=== PATIENT | female | born 1975 | race Caucasian/White ===

== ENCOUNTER 2023-06-24 16:20 | Emergency (ER) | payer MEDICARE, MEDICAID, SELFPAY ==
--- NOTE | 2023-06-24 16:22 | ECG_ITS ---
Test Reason : cx pain Blood Pressure : / mmHG Vent. Rate : 085 BPM Atrial Rate : 085 BPM P-R Int : 130 ms QRS Dur : 092 ms QT Int : 380 ms P-R-T Axes : 036 -36 032 degrees QTc Int : 452 ms Normal sinus rhythm Left axis deviation Nonspecific ST abnormality Abnormal ECG No previous ECGs available Referred By: Generic ED Physician Electronically Signed By:NOAM KERR MD
[2023-06-24 16:40] LABS: MANUAL DIFF FLAG NO
[2023-06-24 16:54] LABS: Anion Gap 13 (12-20); Blood Urea Nitrogen 14 mg/dL (9-16); Calcium 9.2 mg/dL (8.4-10.2); Carbon Dioxide 26 mmol/L (22-29); Chloride 105 mmol/L (96-108); Estimated Glomerular Filt Rate > 60; Glucose Random 128 mg/dL (60-115); Potassium 3.9 mmol/L (3.3-5.1); Sodium 140 mmol/L (135-145)
[2023-06-24 16:58] LABS: Basophils Percent Auto 0.4 % (0-2); Eosinophils Percent Auto 0.1 % (0-4); Hematocrit 38.7 % (37.0-47.0); Hemoglobin 13.4 g/dl (12.0-16.0); Imm Gran Abs Auto 0.02 X10*3/uL (0.00-0.03); Imm Gran Pct Auto 0.2 % (0.0-0.4); Lymphocytes Absolute Auto 2.6 X10*3/uL (1.2-4.9); Lymphocytes Percent Auto 27.8 % (20-40); Mean Corpuscular HGB Conc 34.6 g/dl (31.0-35.0); Mean Corpuscular Hemoglobin 33.7 pg (27.0-33.0); Mean Corpuscular Volume 97.2 fL (80.0-98.0); Mean Platelet Volume 9.8 fL (9.4-12.3); Monocytes Absolute Auto 0.4 X10*3/uL (0.1-1.2); Monocytes Percent Auto 4.7 % (2-11); Neutrophils Absolute Auto 6.3 x10*3/uL (2.0-8.3); Neutrophils Percent Auto 66.8 % (45-73); Platelet Count 262 X10*3/uL (160-400); Red Blood Count 3.98 X10*6/uL (4.20-5.50); Red Cell Distribution Width 11.4 % (11.0-16.0); White Blood Count 9.5 X10*3/uL (4.8-10.8)
[2023-06-24 17:08] LABS: Troponin-I High Sensitivity < 2.7 ng/L (<3.5-17.0)
== END 2023-06-24 18:06 | disposition left against medical advice (07) ==
PROVIDERS: Emergency Provider Emergency Medicine
DX: R07.89 Other chest pain (principal); Z79.899 Other long term (current) drug therapy
CPT/HCPCS: 36415; 80048; 84484; 85025; 93005; 99282; 99283

== ENCOUNTER → 2023-06-24 16:22 | Outpatient (BNV) | payer MEDICARE, MEDICAID, SELFPAY | PROVIDERS: Emergency Provider Emergency Medicine; Visit Provider Internal Medicine Cardiovascular Disease | DX: R94.31 Abnormal electrocardiogram [ECG] [EKG] (principal); R07.9 Chest pain, unspecified | CPT/HCPCS: 93010 ==

== ENCOUNTER 2024-09-13 12:37 | Emergency (ER) | payer MEDICARE, MEDICAID, SELFPAY ==
--- NOTE | ~2024-09-13 | CT_ITS ---
CLINICAL HISTORY: abrupt onset dizzines pain CT HEAD WITHOUT CONTRAST. CT ANGIOGRAPHY HEAD AND NECK WITH CONTRAST. 3D POSTPROCESSING. Comparison: None Findings: HEAD CT: No intra-axial mass, midline shift, hydrocephalus, or acute hemorrhage. No significant atrophy-like change or white matter disease. No evidence for acute large territorial infarct. There is no sinus or mastoid fluid. The orbits are unremarkable. There is no acute fracture. HEAD AND NECK CTA: Aortic arch and cervical great vessels are patent. Intracranial arteries are patent. No aneurysm, dissection, or occlusion. No abnormal intracranial enhancement. Patent dural venous sinuses. The visualized thyroid gland is unremarkable. No cervical mass or fluid collection. Lung apices clear. No acute fracture. IMPRESSION: 1. Unremarkable head CT. 2. Patent head and neck CTA. This document has been electronically signed by: Rosibel Dias DO on 09/13/2024 15:27:04
--- NOTE | 2024-09-13 12:39 | ECG_ITS ---
Test Reason : palpitations Blood Pressure : */* mmHG Vent. Rate : 66 BPM Atrial Rate : 66 BPM P-R Int : 128 ms QRS Dur : 92 ms QT Int : 406 ms P-R-T Axes : * 224 122 degrees QTcB Int : 425 ms Normal sinus rhythm Right superior axis deviation Abnormal ECG When compared with ECG of 24-Jun-2023 16:26, QRS axis Shifted left T wave inversion now evident in Lateral leads ?lead reversal Referred By: Efrain Chapman Electronically Signed By: SOCORRO LEMUS
[2024-09-13 13:03] VITALS: BP 160/90; PULSE 73; RESP 20; TEMP 36.3; O2SAT 99; BMI 26.1
--- NOTE | 2024-09-13 13:11 | ED.GENADULT ---
HPI - General Adult General Chief complaint: Dizziness Stated complaint: Dizzy Laying Down Jaw Pain Acc Heartrate Time Seen by Provider: 09/13/24 13:18 Source: patient Mode of arrival: ambulatory Limitations: no limitations History of Present Illness ED Provider: CAESAR VARGHESE narrative: 49 yo female who states she had memory issues a few years back and couldn't remember how to do things so she was diagnosed with TIA at [facility] in 2021 she takes baby aspirin daily. She comes in with c/o going to bed at 10pm normal then woke up at 7am with severe room spinning and nausea. No numbness, weakness, no vision changes. She was last known well 10pm. She feels fine sitting up in bed without moving. If she looks or turns to the side she has severe room spinning. No recent travel, URI, head trauma. No ringing in the ears. MD complaint: room spinning Onset (ago): day(s) (woke up today with symptoms LKWT 10pm) Location: head Radiation: non-radiation Severity: moderate Quality: other (spinning) Pain Consistency: intermittent Relieving factors: immobilization Exacerbating factors: movement Associated symptoms: nausea/vomiting Treatments prior to arrival: none Related Data Previous Rx's ?Medication ?Instructions ?Recorded meclizine 25 mg tablet 25 mg PO TID PRN dizziness #30 tabs 09/13/24 ondansetron 4 mg disintegrating 4 mg PO Q8H PRN nausea and 09/13/24 tablet vomiting #20 tabs Allergies Allergy/AdvReac Type Severity Reaction Status Date / Time acetaminophen [From PERCOCET] Allergy Unknown ANAPHYLAXIS Verified 09/13/24 13:08 morphine [MORPHINE] Allergy Unknown ANAPHYLAXIS Verified 09/13/24 13:08 oxycodone [From PERCOCET] Allergy Unknown ANAPHYLAXIS Verified 09/13/24 13:08 Review of Systems Review of Systems: Constitutional : No Fever, No Chills, No Fatigue ENT/Mouth : No sore throat, No Rhinorrhea Eyes: No Eye Pain, No Swelling, No Redness Cardiovascular : No Chest Pain, No SOB, No Dyspnea on Exertion Respiratory : No Cough, No Sputum Gastrointestinal : pos Nausea, No Vomiting, No Diarrhea, No abdominal Pain Genitourinary : No Dysuria, No Urinary Frequency, No Hematuria, Musculoskeletal : No joint pain, No Myalgias, No Joint Swelling Skin : No Skin Lesions, No rash Neuro : No Weakness, No Numbness, pos Dizziness, no Headache Psych : No Anxiety/Panic, No Depression Heme/Lymph: No Bruising, No Bleeding,No Lymphadenopathy Endocrine : No Polyuria, No Polydipsia All other systems reviewed and are negative [facility] Past Medical History Attestation statement: The following information was validated with the patient. Source: old records reviewed Medical History Memory changes Social History Social History Smoked in Last 30 Days: No Use of substances other than those prescribed or required for medical reasons: No Advance Directives: No Advance Directives Information Provided: No Do you have a plan to hurt others: No Plan Patient : No Physical Exam ED Vital Signs: Vital Signs - 24 hr 09/13/24 13:03 09/13/24 13:22 09/13/24 15:58 Temperature 97.3 F 97.3 F Pulse Rate 73 63 82 Respiratory Rate 20 18 18 Blood Pressure 160/90 H 174/92 H 141/80 H Pulse Oximetry 99 99 97 Oxygen Delivery Method Room Air Room Air Room Air BMI result Body Mass Index 26.1 Appearance: Alert. Oriented X3. No acute distress. Eyes: Pupils equal, round and reactive to light. some very mild horizontal nystagmus when turning head to right ENT: Pharynx normal. Neck: Normal inspection. Neck supple. CVS: Normal heart rate and rhythm. Pulses normal. Respiratory: No respiratory distress. Breath sounds normal. Abdomen: Soft and nontender. Skin: Skin warm and dry. Normal skin color. Normal skin turgor. Extremities: No lower extremity edema. No calf ttp Neuro: Oriented X 3. No motor deficit. No sensory deficit. CN2-12 intact. No ataxia when walking to her bed, no visual field cut offs NIH Stroke Scale Internal: Initial- Upon Arrival Level of Consciousness: Alert Level of Consciousness Questions: Answers both questions correctly Level of Consciousness Commands: Performs both tasks correctly Best Gaze: Normal Visual: No visual loss Facial Palsy: Normal Motor Arm (Right): No drift Motor Arm (Left): No drift Motor Leg (Right): No drift Motor Leg (Left): No drift Limb Ataxia: Absent Sensory: Normal Best Language: No aphasia Dysarthia: Normal Extinction and Inattention: No abnormality Score: 0 Course Course Course Narrative: RmE: 49-year-old female presents to ED for dizziness nausea right-sided your ear pain since 07:00. Patient is feel like the room is spinning. Patient states history of mini stroke. On exam negative for any obvious neuro deficits. Positive for right-sided horizontal nystagmus. Patient is brought back to the ED immediately. Patient's out the window for tPA due to symptoms starting at 07:00. Medications Administered Discontinued Medications Generic Name Dose Route Start Last Admin Trade Name Marylu PRN Reason Stop Dose Admin Lactated Ringer's 1,000 mls @ 999 mls/hr 09/13/24 13:38 09/13/24 15:00 Lr IV 09/13/24 14:38 Infused .Q1H1M ONE Infusion Lorazepam 0.5 mg 09/13/24 13:38 09/13/24 14:14 Lorazepam 2 Mg/Ml Vial IVPUSH 09/13/24 13:39 0.5 mg STAT STA Administration Meclizine HCl 25 mg 09/13/24 13:38 09/13/24 14:14 Meclizine Hcl 25 Mg Tablet PO 09/13/24 13:39 25 mg ONCE ONE Administration Ondansetron HCl 4 mg 09/13/24 13:38 09/13/24 14:14 Ondansetron Hcl 4 Mg/2 Ml Vial IVPUSH 09/13/24 13:39 4 mg ONCE ONE Administration Medical Decision Making Medical Decision Making [facility] Narrative: 49 yo female with reported TIA in past but I cannot find this in her [facility] records after chart review she never had brain MRI as well at this time given her dizziness and last known well 10pm I will obtain CTA for any signs of mass/occlusion to posterior circulation. On exam she has symptoms when moving or looking to the right suspect more peripheral lesion. I have ordered CTA, labs, EKG, IV ativan/meclizine. She has normal gait to the room. Differential Diagnosis Differential Diagnoses: The differential diagnosis associated with the presentation includes vertigo, less likely posterior stroke, anemia, dehydration Admission/Observation Consideration of admission/observation: Escalation of care including admission/observation considered CTA negative, symptoms resolved not in afib, BP 140/80 on DC at this time suspect vertigo Lab Data [facility] Lab Attestation statement: I reviewed the patient's lab results. 09/13/24 13:38 09/13/24 13:38 Labs: Lab Results 09/13/24 Range/Units 13:38 WBC 11.0 H (4.8-10.8) X10*3/uL RBC 4.35 (4.20-5.50) X10*6/uL Hgb 14.8 (12.0-16.0) g/dl Hct 42.0 (37.0-47.0) % MCV 96.6 (80.0-98.0) fL MCH 34.0 H (27.0-33.0) pg MCHC 35.2 H (31.0-35.0) g/dl RDW 11.8 (11.0-16.0) % Plt Count 309 (160-400) X10*3/uL MPV 9.5 (9.4-12.3) fL Immature Gran % (Auto) 0.3 (0.0-0.4) % Neut % (Auto) 76.3 H (45-73) % Lymph % (Auto) 19.3 L (20-40) % Mckenzie % (Auto) 3.8 (2-11) % Eos % (Auto) 0.0 (0-4) % Baso % (Auto) 0.3 (0-2) % Lymph # (Auto) 2.1 (1.2-4.9) X10*3/uL Mckenzie # (Auto) 0.4 (0.1-1.2) X10*3/uL Eos # (Auto) 0.0 (0.0-0.4) X10*3/uL Baso # (Auto) 0.0 (0.0-0.2) X10*3/uL Abs Immat Gran (auto) 0.03 (0.00-0.03) X10*3/uL Absolute Neuts (auto) 8.4 H (2.0-8.3) x10*3/uL Absolute Nucleated RBC 0.000 (0.0-0.012) X10*3/uL Nucleated RBC % (auto) 0.0 (0.0-0.2) /100WBC PT 10.5 L (10.9-12.4) SEC INR 0.9 (0.9-1.1) APTT 28.0 (26.0-36.8) SEC Sodium 144 (135-145) mmol/L Potassium 3.8 (3.3-5.1) mmol/L Chloride 108 (96-108) mmol/L Carbon Dioxide 27 (22-29) mmol/L Anion Gap 13 (12-20) BUN 10 (9-16) mg/dL Creatinine 0.68 (0.5-1.4) mg/dL Estim Creat Clear Calc 83.0 Estimated GFR > 60 Random Glucose 118 H (60-115) mg/dL Calcium 9.9 D (8.4-10.2) mg/dL Total Bilirubin 1.1 H (0.0-1.0) mg/dL AST 17 (5-31) U/L ALT 23 (0-31) U/L Alkaline Phosphatase 45 (39-117) U/L Troponin I High Sens < 2.7 (<3.5-17.0) ng/L Total Protein 7.6 (6.5-8.0) g/dL Albumin 4.6 (3.5-5.0) g/dL Independent Interpretation I performed an independent interpretation of an: EKG and CT Scan (normal ) Interpretation: first EKG limb lead reversal Rate: 55 Rhythm: sinus bradycardia Falcon: left Normal P waves. Normal JAVON. Normal QRS complex. ST T wave : inverted t wave V1, no RON qTC: 415 prior studies: no acute ischemia The study has been interpreted contemporaneously by me. . Radiology Impression Discussion of test interpretation with radiology: I have reviewed the radiologist's reading. Independent Historian Clinical information obtained from an independent historian. History obtained from or confirmed by: Spouse External Record Review External record reviewed: Outpatient record Prescription Management I considered prescription management with: Other Discharge Plan Discharge Clinical Impression: Vertigo Patient Disposition: Home, Self-Care Instructions: Vertigo (ED) Additional Instructions: labs, EKG, CTA of the head and neck are normal return for worsening symptoms or concerns follow up with your doctor rest and stay hydrated Prescriptions: New meclizine 25 mg tablet 25 mg PO TID PRN (Reason: dizziness) Qty: 30 0RF ondansetron 4 mg tablet,disintegrating 4 mg PO Q8H PRN (Reason: nausea and vomiting) Qty: 20 0RF Interventions: ED Discharge Assessment Last Done: 09/13/24 15:58 Discharge Date/Time: 09/13/24 15:59 Print Language: Yi
[2024-09-13 13:22] VITALS: BP 174/92; PULSE 63; RESP 18; O2SAT 99
--- OUTSIDE RECORDS SUMMARY | 2024-09-13 13:43 | XMS_ITS | Clinical Summary ---
Author Organization [facility] ity Address [address] [place] [address] Care Team Providers Care Salesperson Women'S Hats Name Role Phone Unavailable Primary Care Provider Unavailabl e Social History Tobacco Use Types Packs/Day Years Used Date Smoking Tobacco: Never Assessed Comments Unknown Sex and Gender Information Value Date Recorded Sex Assigned at Not on file Legal Sex Female 12:45 PM EST Gender Identity Not on file Sexual Orientation Not on file Plan of Treatment Health Maintenance Due Date Last Done Comments Breast Cancer Screening 1973 DTaP,Tdap,and Td Vaccines (1 - Tdap) 1992 Hepatitis B Vaccines (1 of 3 - 19+ 3-dose series) 1992 Cervical Cancer Screening: P ap Smear 1994 Colorectal Cancer Screening: Colonoscopy 06/05/2022 Depression Screening 06/05/2022 HIV Screening 06/05/2022 Hepatitis C Screening 06/05/2022 Social Influencers of Health Screening 06/05/2022 Pneumococcal Vaccine: 50+ Ye ars (1 of 1 - PCV) 2023 Zoster Vaccines (1 of 2) 2023 COVID-19 Vaccine ( - 2023-2 5 season) 2024 Influenza Vaccine (#1) 2024 04/26/2016 HIB Vaccines Aged Out No longer eligi ble based on patient's age to complete this topic HPV Vaccines Aged Out No longer eligi ble based on patient's age to complete this topic Hepatitis A Vaccines Aged Out No long er eligible based on patient's age to complete this topic IPV Vaccines Aged Out No longer eligi ble based on patient's age to complete this topic MMR Vaccines Aged Out No longer eligi ble based on patient's age to complete this topic Meningococcal ACWY Vaccine Aged Out N o longer eligible based on patient's age to complete this topic Meningococcal B Vacine Aged Out No lo nger eligible based on patient's age to complete this topic Pneumococcal Vaccine: Pediat rics (0 to 5 Years) and At-Risk Patients (6 to 64 Years) Aged Out No longer eligi ble based on patient's age to complete this topic RSV Immunization Patients Un karmen 20 months Aged Out No longer eligible b ased on patient's age to complete this topic Varicella Vaccines Aged Out No longer eligible based on patient's age to complete this topic
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
--- OUTSIDE RECORDS SUMMARY | 2024-09-13 13:44 | XMS_ITS | Continuity of Care Document ---
Author Organization [facility] Address [address] [place] [address]- Care Team Providers Care Chip Separator Name Role Phone Cathy Pappas MD Primary Care Physician Encounter [facility] R [id number] Date(s): 07/30/24 - 09/05/24 [facility] [address] [place] [phone] Attending Physician: Cathy Pappas MD Admitting Physician: Cathy Pappas MD Encounter Type: Pre-OutPatient One Time Allergies, Adverse Reactions, Alerts Substance Criticality Severity Reaction Reaction Severity Status propranolol 1 syncope Active Zoloft insomnia Active KlonoPIN Active morphine Oxycodone tight feeling in neck Active oxyCODONE Swelling of throat A ctive mirtazapine lip tingling nausea and vomiting Active Imitrex tight feeling in neck Active Topamax numbness Active Duloxetine irritability twitching dreams Active 1still takes for migraines Immunizations Given and Recorded Vaccine Date Status Refusal Reason tetanus/diphtheria/pertussis, acel(Tdap) 11/02/22 Given tetanus/diphtheria/pertussis, acel(Tdap) 10/14/21 Recorded tetanus/diphtheria/pertussis, acel(Tdap) 05/12/16 Recorded tetanus/diphtheria/pertussis, acel(Tdap) 1 10/17/11 Given influenza virus vaccine, inactivated 2/2/22 Roel rded influenza virus vaccine, inactivated 05/12/19 Give n influenza virus vaccine, inactivated 05/26/18 Give n influenza virus vaccine, inactivated 04/26/16 Roel rded influenza virus vaccine, inactivated 04/05/14 Roel rded influenza virus vaccine, inactivated 03/26/13 Give n influenza virus vaccine, inactivated 2 04/12/10 Gi joel SARS-CoV-2 mRNA ([id number]) vax 08/09/21 Recorded SARS-CoV-2 (COVID-19) mRNA BNT-162b2 vac 01/17/21 Recorded SARS-CoV-2 (COVID-19) mRNA BNT-162b2 vac 12/27/20 Recorded Measles/Mumps/Rubella/VaricellaVirusVac 10/30/18 G iven hepatitis B adult vaccine 3 10/30/18 Given hepatitis B adult vaccine 05/12/16 Recorded Hepatitis B Immune Globulin 05/12/16 Recorded pneumococcal 23-valent vaccine 01/19/12 Given 1Admin Note: VIS GIVEN DATED 07/19 2Admin Note: vis given 02/14/10 3Result Comment: [employer] Medications Ambien 5 mg oral tablet 1 tablet = 5 mg, By Mouth, Daily at bedtime, PRN for sleep, # 30 tablet, 5 Refills, Maintenance, 03/22/23 11:57:00 AM EDT, Tablet, [id number], Fill date 07/21/20, 156, cm, 03/05/23 [...] 3 Refills, Maintenance, 02/11/23 5:21:00 PM EDT, [facility][id number], 156, cm, 02/07/23 11:06:00 EDT, Height, 67, [...] 0 Refills, Maintenance, 07/20/24 12:31:00 PM EST, [id number], 156, cm, 06/25/24 11:22:00 EST, Height, 58, kg, 10/21/23 15:45:00 EDT, Dry Weight Start Date: 07/20/24 Status: Ordered Quantity: 90.0 Unit: capsule Repeat number: 1 fluconazole 150 mg oral tablet 1 tablet = 150 mg, By Mouth, Once, take at the end of abx course, # 1 tablet, 1 Refills, Soft Stop,11/12/23 2:01:00 PM EDT, Tablet, [facility]/pharm[facility] #[id number], Partial fill upon patient request if the prescription is for a schedule II opioid drug., 156, cm, 11/12/23 13:35:00 EDT, Height, 58, kg, 10/21/23 15:45:00 EDT, Dry Weight Start Date: 11/12/23 Status: Ordered Quantity: 1.0 Unit: tablet Repeat number: 2 meloxicam 7.5 mg oral tablet 1 tablet, By Mouth, Daily, # 30 tablet, 0 Refills, Maintenance, 04/04/23 8:35:00 PM EDT, [id number], 156, cm, 03/05/23 15:12:00 EDT, Height, 67, [...] Maintenance, 09/16/23 1:03:00 PM EDT, DIS Tablet, [facility][id number], change to dissintegrating tabs, 156, cm, 08/19/23 9:00:00 EST, Height, 67, kg, 09/25/21 10:53:00 EDT, Dry Weight Start Date: 09/16/23 Status: Ordered Quantity: 12.0 Unit: tablet Repeat number: 12 SEROquel 25 mg oral tablet 25 mg, 1, tablet, By Mouth, Daily, # 30 tablet, Refills 4, Tot. Refills 4, Maintenance, 07/30/24 4:21:00 PM EST, Route to Pharmacy Electronically, [facility]/pharm[facility][id number], Partial fill upon patient requestif the [...] AM EDT, Aerosol, Route to Pharmacy Electronically, [id number], [facility]/pharmacy #[id number], 156, cm, 03/05/23 15:12:00 EDT, Height, 67, kg, 09/25/21 10:53:00 EDT, Dry Weight Start Date: 03/25/23 Status: Ordered Quantity: 3.0 Unit: each Repeat number: 4 traZODone 50 mg oral tablet 50 mg, 1, tablet, By Mouth, Daily at bedtime, # 30 tablet, Refills 0, Tot. 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 [...] Team Personnel Name: Cathy Pappas MD Position: S Physician - Primary Care Member Role: PCP Address: [address] [place] [address] Adult Medicine [address] Telecom: Care Team Related Persons Name: MYRNA AGUERO Name: SUYAPA AGOSTO Name: MALI BO Name: BETHEL DEUTSCH Name: BETHEL PAYNE Insurance Providers Guarantor name: JUVENAL WESTON Health Plan Information #: 2 [facility] Member Number: [id number] Policy Number: NA Group Number: NA Health Plan Information #: 1 Payer: MEDICARE PART B OUTPT Member Number: [id number] Policy Number: NA Group Number: NA
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
--- OUTSIDE RECORDS SUMMARY | 2024-09-13 13:44 | XMS_ITS | Continuity of Care Document ---
Author Organization [facility] Address [address] [place] [address]- Care Team Providers Care Line Producer Name Role Phone Mian KUMAR, Cathy Meza Primary Care Physician Encounter [facility] [place] Date(s[place] 07/20/24 - 08/19/24 [facility] [address] [place], [place] [phone] Encounter Type: Triage Allergies, Adverse Reactions, Alerts Substance Criticality Severity Reaction Reaction Severity Status propranolol 1 syncope Active KlonoPIN Active morphine Oxycodone tight feeling [...] inactivated 2 04/12/10 Gi joel SARS-CoV-2 mRNA (qvmigsw-cifx-tcfby) vax 08/09/21 Recorded SARS-CoV-2 (COVID-19) mRNA BNT-162b2 vac 01/17/21 Recorded SARS-CoV-2 (COVID-19) mRNA BNT-162b2 vac 12/27/20 Recorded Measles/Mumps/Rubella/VaricellaVirusVac 10/30/18 G iven hepatitis B adult vaccine 3 10/30/18 Given hepatitis B adult vaccine 05/12/16 Recorded Hepatitis B Immune Globulin 05/12/16 Recorded pneumococcal 23-valent vaccine 01/19/12 Given 1Admin Note: VIS GIVEN DATED 07/19 2Admin Note: vis given 02/14/10 3Result Comment: HEPLISAV-B [employer] Medications Ambien 5 mg oral tablet 1 tablet = 5 mg, By Mouth, Daily at bedtime, PRN for sleep, # 30 tablet, 5 Refills, Maintenance, 03/22/23 11:57:00 AM EDT, Tablet, [facility]/pharmacy #[id number], Fill date 07/21/20, 156, cm, 03/05/23 [...] 3 Refills, Maintenance, 02/11/23 5:21:00 PM EDT, [facility]/pharmacy#1130, 156, cm, 02/07/23 11:06:00 EDT, Height, 67, [...] 0 Refills, Maintenance, 07/20/24 12:31:00 PM EST, [facility] STORE [id number], 156, cm, 06/25/24 11:22:00 EST, Height, 58, kg, 10/21/23 15:45:00 EDT, Dry Weight Start Date: 07/20/24 Status: Ordered Quantity: 90.0 Unit: capsule Repeat number: 1 fluconazole 150 mg oral tablet 1 tablet = 150 mg, By Mouth, Once, take at the end of abx course, # 1 tablet, 1 Refills, Soft Stop,11/12/23 2:01:00 PM EDT, Tablet, [facility]/pharmacy #1130, Partial fill upon patient request if the prescription is for a schedule II opioid drug., 156, cm, 11/12/23 13:35:00 EDT, Height, 58, kg, 10/21/23 15:45:00 EDT, Dry Weight Start Date: 11/12/23 Status: Ordered Quantity: 1.0 Unit: tablet Repeat number: 2 meloxicam 7.5 mg oral tablet 1 tablet, By Mouth, Daily, # 30 tablet, 0 Refills, Maintenance, 04/04/23 8:35:00 PM EDT, [facility], 156, cm, 03/05/23 15:12:00 EDT, Height, 67, [...] Maintenance, 09/16/23 1:03:00 PM EDT, DIS Tablet, [facility]/pharmacy #1130, change to dissintegrating tabs, 156, cm, 08/19/23 9:00:00 EST, Height, 67, kg, 09/25/21 10:53:00 EDT, Dry Weight Start Date: 09/16/23 Status: Ordered Quantity: 12.0 Unit: tablet Repeat number: 12 SEROquel 25 mg oral tablet 25 mg, 1, tablet, By Mouth, Daily, # 30 tablet, Refills 4, Tot. 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 [...] Team Personnel Name: Cathy Pappas MD Position: [facility] Physician - Primary Care Member Role: PCP Address: [address] [place] [address] Adult Medicine [address] Telecom: Care Team Related Persons Name: MYRNA AGUERO Name: SUYAPA AGOSTO Name: MALI BO Name: BETHEL DEUTSCH Name: BETHEL PAYNE Insurance Providers Guarantor name: JUVENAL WESTON Health Plan Information #: 1 Payer: MEDICARE PART B OUTPT Member Number: NA Policy Number: NA Group Number: NA Health Plan Information #: 2 P[facility] Member Number: NA Policy Number: NA Group Number: NA
--- OUTSIDE RECORDS SUMMARY | 2024-09-13 13:44 | XMS_ITS | Continuity of Care Document ---
Author Organization [facility] Address [address] [place] [address] Care Team Providers Care Tow Feeder Name Role Phone JAYLA WHITE Primary Care Provider Assessment No assessment recorded. Plan of Treatment Reminders Order Date Submit Date Provider Last Modified By Organization Details Last Modified Time Details Appointments NEW PATIENT 10 2024 09:00A M Jerel Porter MD Not available Not available Not available Lab None recorded. Referral None recorded. Procedures None recorded. Surgeries None recorded. Imaging MRI, shoulder, w/o contrast - R/O RCT [address] [facility] ([facility]), [address] [place], [address], 09/10/2024 09:46:00 Medication Orders None recorded. Patient TargetsNo targets recorded. Patient InstructionsNo instructions recorded. Reason for Referral None Reported. Problems Name Problem SNOMED Code Status Onset Date Resolution Date Notes Provider Name and Address Organization Details Recorded Time No complaint s 200497301 Active Status: 'I'; Not Available [employer] 09:11:50 Subacromi al impingeme nt 095986685 Active 2023 JEAN burgos [facility] 4 16:26:35 Internal impingeme nt of left shoulder 808685711857 9105 Active 2023 JEAN burgos 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 554898213274 108 Active 2023 JEAN burgos [place] - [facility] 4 16:47:56 Impingeme nt syndrome of left shoulder region 935660450540 104 Active 2024 Ashley Casas PA-C [address], [place], [address] , [facility] 5 08:50:41 Dislocati on of patellofe moral joint 462648460 Active 2019 Problem Code: S83.005D ; Problem Code Type: ICD-10; Status: 'A'; Not Available [facility] 4 11:12:25 Subluxati on of patellofe moral joint 224532346 Active 2019 Problem Code: S83.012A ; Problem Code Type: ICD-10; Status: 'A'; Not Available [facility] 4 11:12:25 Dislocati on of patellofe moral joint 918649696 Active 2023 Marko Vick PA-C [address], [place], [address] , [facility] 4 10:52:08 Problem Notes None recorded. Procedures Surgical History Date Name Laterality Status Provider Name and Address Organization Details Recorded Time 5 Sports Shoulder completed Ashley Casas PA-C [address], [place], [address], [facility] 09/10/2024 09:44:59 5 PM Shoulder Kenalog 2cc Injection Unilateral cancelled Jerel Porter MD [address], [place], [address], [facility] 09/07/2024 17:29:45 4 Small Joint Kenalog Injection, Bilateral completed Gay Pepe PA-C [address], [place], [address], [facility] 06/12/2024 12:15:32 4 PM Shoulder Kenalog 2cc Injection Unilateral completed Jerel Porter MD [address], [place], [address], [facility] - [facility] 02/20/2024 16:41:16 Imaging Results None recorded. Procedure Notes None recorded. Medical Equipment None Reported. Allergies Allergen ID Allergen Name Allergen Category Reaction Reaction Severity Criticality Documentation Date Start Date Code Code System Note Provider Name and Address Organization Details Recorded Time 59647 Imitrex medicatio n Not available Not available Not available 09/09/20232015 66700 3 RxNorm Aller gyRea ction : 'Skin React ion'; Not Available [facility] 4 11:24:50 42771 oxycodone hydrochlo ride medicatio n Not available Not available Not available 09/09/20232021 82796 RxNorm Not Available [facility] 4 11:24:50 80995 morphine sulfate medicatio n Not available Not available Not available 09/09/20232013 90174 RxNorm Not Available [facility] 4 11:24:50 30979 acetamino phen / oxycodone medicatio n Not available Not available Not available 09/09/20232021 73997 3 RxNorm Not Available [facility] 4 11:24:50 Medications Name Sig Start Date [...] Not Available No t Available amoxicillin 875 mg-prabha hatch clavulanate 125 mg tablet TAKE 1 TABLET [...] Updated DateTime 09/10/2024 157.48 cm 25.2 kg/m2 19254.75 g Simi Ge [facility] 09/10/2024 09:21:35 Social History Question Answer Notes LastModified by Organizat ion Details LastModified Time Tobacco Smoking Status Never Smoker CURTIS burgos [facility] 11/19/2023 17:06:54 What Is Your Level [...] History Nothing Reported. Medical History Condition Response Allergies/Hayfever N Coronary Artery Disease N Anxiety/Depression Y Breathing or lung disorders Y Emphysema N Nerve Disorders N Thyroid Problems N COPD N Pacemaker N Anemia N Kidney/Bladder Problems Y Vascular Disease N Heart Trouble Y Heart Attack (IA) N Gastrointestinal Disease N Cholesterol Y Diabetes N Autoimmune disease N Bleeding Disorder N Orthotics N Arthritis Y Seizures/Epilepsy N Blood Clot N AIDS/HIV N Congestive Heart Failure (CHF) N Acid Reflux (GERD) Y Cancer N Stroke Y Asthma Y Circulation Problems N Peripheral Vascular Disease N Sleep Apnea N Hepatitis N Heart Disease N Rheumatoid Arthritis N Arrhythmia N Pulmonary Embolism N Headaches Y Fibromyalgia N Hypertension N Osteoporosis N Gynecological HistoryNo gynecological history recorded. Obstetrics History GPAL:G 0 P 0 0 0 0 Past Encounters Encounter ID Performer Location Encounter Start Date Encounter Closed Date Diagnosis/Indication Diagnosis SNOMED-CT Code Diagnosis ICD10 Code Diagnosis Note [id number] [facility] 2[address] [place] [address] 09/10/2024 09:16:23 09/10/2024 09:45:58 Impingement syndrome of left shoulder region [id number] 36337 M75.42 Pain of le ft shoulder region 1188460799 M25.512 Health Concerns Section Related Observation LastModified by Organization Detai ls LastModified Time None Recorded Concern Status LastModified by Organization Details LastModified Time None Recorded Payers Encounter Date Sequence Insurance Name Policy Number Policy Cuadra Covered Member ID Cuadra Member ID Guarantor Name 09/10/2024 1 MEDICARE [place]: [email or web address] Hannah Patel [id number] Hannah Patel Notes Date Note Type Note Provider Name and Address Organization Details Recorded Time 09/10/2024 text/html I am seeing the patient today under the supervision of {{Babita Howell}} who was available but did not [...] Previous 4v x-rays of the {{Right Left* Bilat eral}} shoulder reviewed at [facility] today demonstrates evidence of prior scapular body fracture healed, type II-III acromion, moderate to severe AC joint arthrosis, well-preserved glenohumeral joint space. IMPRESSION: {{Right Left* Bilat eral}} shoulder impingement, AC joint arthrosis PLAN: Findings [...] will likely include left shoulder arthroscopy with SADDCE. All of her concerns are addressed and she understands and agrees with the plan. Speech recognition graphic design assistant software was used to create portions of this document. An attempt at proofreading has been made to minimize errors. Please call for corrections. Ashley Casas PA-C [address] [facility] [address], [place], [address], [facility] - [facility] 09/10/2024 09:45:56 OBGyn Episode No OBEpisode recorded.
--- OUTSIDE RECORDS SUMMARY | 2024-09-13 13:44 | XMS_ITS | Continuity of Care Document ---
Author Organization [facility] Address [address] [place] [address]- Care Team Providers Care Taxi Cab Driver Name Role Phone Mian KUMAR, Cathy Meza Primary Care Physician Encounter [facility] Date(s): 07/16/24 - 08/15/24 [facility] [address] [place] [phone] Encounter Type: Triage Allergies, Adverse Reactions, Alerts [...] inactivated 2 04/12/10 Gi joel SARS-CoV-2 mRNA (tkmntlx-lpmb-gcvuw) vax 08/09/21 Recorded SARS-CoV-2 (COVID-19) mRNA BNT-162b2 vac 01/17/21 Recorded SARS-CoV-2 (COVID-19) mRNA BNT-162b2 vac 12/27/20 Recorded Measles/Mumps/Rubella/VaricellaVirusVac 10/30/18 G iven hepatitis B adult vaccine 3 10/30/18 Given hepatitis B adult vaccine 05/12/16 Recorded Hepatitis B Immune Globulin 05/12/16 Recorded pneumococcal 23-valent vaccine 01/19/12 Given 1Admin Note: VIS GIVEN DATED 07/19 2Admin Note: vis given 02/14/10 3Result Comment: HEPLISAV-B [facility] Medications Ambien 5 mg oral tablet 1 tablet = 5 mg, By Mouth, Daily at bedtime, PRN for sleep, # 30 tablet, 5 Refills, Maintenance, 03/22/23 11:57:00 AM EDT, Tablet, [facility]/pharmacy #1130, Fill date 07/21/20, 156, cm, 03/05/23 15:12:00 EDT, Height, 67, kg, 09/25/21 10:53:00 EDT, Dry Weight Start Date: 03/22/23 Status: Ordered Quantity: 30.0 Unit: tablet Repeat number: 6 Aspirin Low Dose 81 mg oral delayed release tablet 1 tablet = 81 mg, By Mouth, Daily, # 90 tablet, 3 Refills, Maintenance, 03/19/23 8:17:00 AM EDT, [facility]/pharmacy #1130, 156, cm, 03/05/23 15:12:00 EDT, Height, 67, kg, 09/25/21 10:53:00 EDT, Dry Weight Start Date: 03/19/23 Status: Ordered Quantity: 90.0 Unit: tablet Repeat number: 4 atorvastatin 80 mg oral tablet 1 tablet, By Mouth, Daily, # 90 tablet, 3 Refills, Maintenance, 02/11/23 5:21:00 PM EDT, [facility]/pharmacy#1130, 156, cm, 02/07/23 11:06:00 EDT, Height, [...] 0 Refills, Maintenance, 07/20/24 12:31:00 PM EST, [facility] STORE 45577, 156, cm, 06/25/24 11:22:00 EST, Height, 58, kg, 10/21/23 15:45:00 EDT, Dry Weight Start Date: 07/20/24 Status: Ordered Quantity: 90.0 Unit: capsule Repeat number: 1 fluconazole 150 mg oral tablet 1 tablet = 150 mg, By Mouth, Once, take at the end of abx course, # 1 tablet, 1 Refills, Soft Stop,11/12/23 2:01:00 PM EDT, Tablet, [facility]/pharmacy #1130, Partial fill upon patient request [...] Maintenance, 04/04/23 8:35:00 PM EDT, [facility], 156, cm, 03/05/23 15:12:00 EDT, Height, 67, [...] Maintenance, 09/16/23 1:03:00 PM EDT, DIS Tablet, [facility]/pharmacy #1130, change to dissintegrating tabs, 156, cm, 08/19/23 9:00:00 EST, Height, 67, kg, 09/25/21 10:53:00 EDT, Dry Weight Start Date: 09/16/23 Status: Ordered Quantity: 12.0 Unit: tablet Repeat number: 12 SEROquel 25 mg oral tablet 25 mg, 1, tablet, By Mouth, Daily, # 30 tablet, Refills 4, Tot. Refills 4, Maintenance, 07/30/24 4:21:00 PM EST, Route to Pharmacy Electronically, [facility]/pharmacy #1130, Partial fill upon patient requestif [...] AM EDT, Aerosol, Route to Pharmacy Electronically, [id number], [facility]/pharmacy #1130, 156, cm, 03/05/23 15:12:00 EDT, Height, 67, kg, 09/25/21 10:53:00 EDT, Dry Weight Start Date: 03/25/23 Status: Ordered Quantity: 3.0 Unit: each Repeat number: 4 traZODone 50 mg oral tablet 50 mg, 1, tablet, By Mouth, Daily at bedtime, # 30 tablet, Refills 0, Tot. 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 [...] Team Personnel Name: Cathy Pappas MD Position: [facility] Physician - Primary Care Member Role: PCP Address: [address] [place] [address] Telecom: Care Team Related Persons Name: MYRNA AGUERO Name: SUYAPA AGOSTO Name: MALI BO Name: BETHEL DEUTSCH Name: BETHEL PAYNE Insurance Providers Guarantor name: JUVENAL WESTON Health Plan Information #: 1 Payer: MEDICARE PART B OUTPT Member Number: NA Policy Number: NA Group Number: NA Health Plan Information #: 2 Payer: [facility] Member Number: NA Policy Number: NA Group Number: NA
[2024-09-13 13:46] LABS: Basophils Percent Auto 0.3 % (0-2); Hemoglobin 14.8 g/dl (12.0-16.0); Imm Gran Abs Auto 0.03 X10*3/uL (0.00-0.03); Imm Gran Pct Auto 0.3 % (0.0-0.4); Lymphocytes Absolute Auto 2.1 X10*3/uL (1.2-4.9); Lymphocytes Percent Auto 19.3 % (20-40); MANUAL DIFF FLAG NO; Mean Corpuscular HGB Conc 35.2 g/dl (31.0-35.0); Mean Corpuscular Volume 96.6 fL (80.0-98.0); Mean Platelet Volume 9.5 fL (9.4-12.3); Monocytes Absolute Auto 0.4 X10*3/uL (0.1-1.2); Monocytes Percent Auto 3.8 % (2-11); Neutrophils Absolute Auto 8.4 x10*3/uL (2.0-8.3); Neutrophils Percent Auto 76.3 % (45-73); Platelet Count 309 X10*3/uL (160-400); Red Blood Count 4.35 X10*6/uL (4.20-5.50); Red Cell Distribution Width 11.8 % (11.0-16.0)
[2024-09-13 13:52] LABS: INTERNATIONAL NORM RATIO 0.9 (0.9-1.1); Prothrombin Time 10.5 SEC (10.9-12.4)
[2024-09-13 13:59] LABS: Alanine Aminotransferase 23 U/L (0-31); Albumin Level 4.6 g/dL (3.5-5.0); Alkaline Phosphatase 45 U/L (39-117); Anion Gap 13 (12-20); Aspartate Amino Transferase 17 U/L (5-31); Bilirubin Total 1.1 mg/dL (0.0-1.0); Blood Urea Nitrogen 10 mg/dL (9-16); Calcium 9.9 mg/dL (8.4-10.2); Carbon Dioxide 27 mmol/L (22-29); Chloride 108 mmol/L (96-108); Estimated Glomerular Filt Rate > 60; Glucose Random 118 mg/dL (60-115); Potassium 3.8 mmol/L (3.3-5.1); Sodium 144 mmol/L (135-145); Total Protein 7.6 g/dL (6.5-8.0)
[2024-09-13 14:07] LABS: Troponin-I High Sensitivity < 2.7 ng/L (<3.5-17.0)
--- NOTE | 2024-09-13 14:07 | ECG_ITS ---
Test Reason : RETAKE Blood Pressure : */* mmHG Vent. Rate : 55 BPM Atrial Rate : 55 BPM P-R Int : 130 ms QRS Dur : 90 ms QT Int : 434 ms P-R-T Axes : 36 -39 40 degrees QTcB Int : 415 ms Sinus bradycardia Left axis deviation Abnormal ECG When compared with ECG of 13-Sep-2024 12:57, QRS axis Shifted right Referred By: Alivia Lopze Electronically Signed By: SOCORRO LEMUS
[2024-09-13] MEDS: LORazepam 2 MG/ML VIAL 0.5 MG IVPUSH (14:14)
[2024-09-13] MEDS: Lactated Ringers 1,000 ML 999 ML IV (14:14)
[2024-09-13] MEDS: Meclizine HCl 25 MG TABLET PO (14:14)
[2024-09-13] MEDS: ondansetron HCL 4 MG/2 ML VIAL IVPUSH (14:14)
[2024-09-13 15:58] VITALS: BP 141/80; PULSE 82; RESP 18; TEMP 36.3; O2SAT 97
== END 2024-09-13 15:59 | disposition home or self-care (01) ==
PROVIDERS: Physician Assistant; Emergency Provider Emergency Medicine; PCP Internal Medicine
DX: R42 Dizziness and giddiness (principal); R51.9 Headache, unspecified; I49.5 Sick sinus syndrome; R94.31 Abnormal electrocardiogram [ECG] [EKG]; H92.01 Otalgia, right ear; R00.2 Palpitations; R11.0 Nausea; R06.02 Shortness of breath; Z79.899 Other long term (current) drug therapy
CPT/HCPCS: 36415; 70496; 70498; 80053; 84484; 85025; 85610; 85730; 93005; 96361; 96374; 96375; 99284; 99285; J2060; J2405; J7120

== ENCOUNTER → 2024-09-13 12:39 | Outpatient (BNV) | payer MEDICARE, MEDICAID, SELFPAY | PROVIDERS: Emergency Provider Emergency Medicine; PCP Internal Medicine; Visit Provider Internal Medicine | DX: R00.1 Bradycardia, unspecified (principal); R94.31 Abnormal electrocardiogram [ECG] [EKG]; R00.2 Palpitations | CPT/HCPCS: 93010 ==

== ENCOUNTER → 2024-09-13 13:38 | Outpatient (BNV) | payer MEDICARE, MEDICAID, SELFPAY | PROVIDERS: Emergency Provider Emergency Medicine; PCP Internal Medicine; Visit Provider Radiology Diagnostic Radiology | DX: R42 Dizziness and giddiness (principal) | CPT/HCPCS: 70496; 70498 ==